=== PATIENT | male | born 1945 | race Caucasian/White ===

== ENCOUNTER 2020-09-30 16:35 | Observation (INO) ==
[2020-09-30] MEDS ORDERED: Naloxone 0.4 MG/ML INJ IVP PRN (21:06)
[2020-09-30] MEDS ORDERED: Ondansetron ODT 4 MG TAB.RAPDIS SL PRN (21:06)
[2020-09-30] MEDS: Melatonin 3 MG TABLET PO ONE ×2 (21:50→22:22)
[2020-09-30] MEDS ORDERED: Nitroglycerin 0.4 MG TAB.SUBL SL PRN (21:52)
[2020-09-30] MEDS ORDERED: *HR* Metoprolol 5 MG/5 ML VIAL IVP PRN (21:53)
[2020-09-30] MEDS ORDERED: metOLazone 5 MG TABLET PO SCH (22:00)
[2020-09-30] MEDS: Melatonin 3 MG TABLET PO SCH (22:19)
[2020-09-30] MEDS: *HR* LORazepam Oral Conc 2 MG/ML PO SCH (22:19)
[2020-10-01] MEDS: Doxycycline 100 MG in 0.9 % Sodium Chloride Mini Bag 100 ML IVPB SCH ×2 (05:49→17:25)
[2020-10-01 06:17] LABS: Basophils % 0.6 %; Eosinophils # 0.2 K/mcL (0.0-0.6); Hematocrit 28.5 % (37.5-50.1); Hemoglobin 8.8 g/dL (12.9-16.9); Immature Granulocytes % 0.2 % (0-4); Lymphocytes # 0.6 K/mcL (0.6-4.6); Lymphocytes % 11.1 %; Mean Corpuscular HGB Conc 30.9 g/dL (31.6-35.5); Mean Corpuscular Hemoglobin 27.8 pg (28.0-33.3); Mean Corpuscular Volume 89.9 fL (83.0-100.0); Mean Platelet Volume 8.7 fL (9.4-12.4); Monocytes # 0.5 K/mcL (0.0-1.3); Monocytes % 10.5 %; Neutrophils # 3.7 K/mcL (1.6-8.9); Platelet Count 126 K/mcL (140-400); Red Blood Count 3.17 M/mcL (4.19-5.50); Red Cell Distribution Width 16.4 % (11.5-14.5); Segmented Neutrophils % 73.6 %
[2020-10-01 06:24] LABS: INR 2.5; Prothrombin Time 28.2 Seconds (9.4-12.1)
[2020-10-01] MEDS ORDERED: Warfarin perPT PO PRN (07:05)
[2020-10-01] MEDS: Finasteride 5 MG TABLET PO SCH (07:42)
[2020-10-01] MEDS: Sennosides/Docusate Sodium TABLET PO SCH (07:43)
[2020-10-01 08:25] LABS: Calcium 8.9 mg/dL (8.6-10.3); Magnesium 1.7 mg/dL (1.6-2.6); Phosphorous 3.2 mg/dL (2.7-4.5); Potassium 4.2 mEq/L (3.5-5.1); Thyroid Stimulating Hormone 1.782 mcIU/mL (0.340-5.600)
[2020-10-01] MEDS ORDERED: Metoprolol XL (24 HR) Succ 25 MG TAB.ER.24H PO SCH (09:00)
[2020-10-01] MEDS ORDERED: Bumetanide 1 MG TABLET PO SCH ×2 (09:00→19:00)
[2020-10-01] MEDS ORDERED: Metoprolol XL (24 HR) Succ 25 MG TAB.ER.24H PO ONE (10:00)
[2020-10-01] MEDS: *HR* OxyCODONE/APAP 10/325 TABLET PO PRN (15:35)
[2020-10-01] MEDS: Furosemide 20 MG/2 ML VIAL IVP SCH (15:50)
[2020-10-01] MEDS ORDERED: *HR* Warfarin 3 MG TABLET PO SCH (18:00)
[2020-10-01] MEDS ORDERED: *HR* Warfarin 3 MG TABLET PO ONE (18:00)
[2020-10-01] MEDS: *HR* LORazepam Oral Conc 2 MG/ML PO SCH (21:44)
[2020-10-01] MEDS: Melatonin 3 MG TABLET PO SCH (21:48)
[2020-10-02 02:14] LABS: Basophils % 0.7 %; Eosinophils # 0.3 K/mcL (0.0-0.6); Eosinophils % 5.7 %; Hematocrit 28.7 % (37.5-50.1); Immature Granulocytes % 0.2 % (0-4); Lymphocytes # 0.4 K/mcL (0.6-4.6); Lymphocytes % 9.6 %; Mean Corpuscular HGB Conc 31.4 g/dL (31.6-35.5); Mean Corpuscular Hemoglobin 28.5 pg (28.0-33.3); Mean Corpuscular Volume 90.8 fL (83.0-100.0); Mean Platelet Volume 9.3 fL (9.4-12.4); Monocytes # 0.5 K/mcL (0.0-1.3); Monocytes % 10.9 %; Neutrophils # 3.4 K/mcL (1.6-8.9); Platelet Count 142 K/mcL (140-400); Red Blood Count 3.16 M/mcL (4.19-5.50); Red Cell Distribution Width 16.3 % (11.5-14.5); Segmented Neutrophils % 72.9 %; White Blood Count 4.6 K/mcL (4.3-11.1)
[2020-10-02 02:22] LABS: INR 2.9; Prothrombin Time 33.1 Seconds (9.4-12.1)
[2020-10-02 02:33] LABS: Calcium 8.6 mg/dL (8.6-10.3); Magnesium 1.6 mg/dL (1.6-2.6); Phosphorous 3.9 mg/dL (2.7-4.5); Potassium 4.1 mEq/L (3.5-5.1)
[2020-10-02] MEDS: Doxycycline 100 MG in 0.9 % Sodium Chloride Mini Bag 100 ML IVPB SCH (05:16)
[2020-10-02] MEDS ORDERED: metOLazone 5 MG TABLET PO SCH (06:30)
[2020-10-02] MEDS ORDERED: Metoprolol XL (24 HR) Succ 25 MG TAB.ER.24H PO SCH (09:00)
[2020-10-02] MEDS: Furosemide 20 MG/2 ML VIAL IVP SCH (10:16)
[2020-10-02] MEDS: Finasteride 5 MG TABLET PO SCH (10:17)
[2020-10-02] MEDS: Sennosides/Docusate Sodium TABLET PO SCH (10:17)
[2020-10-02 11:31] VITALS: BP 133/80
[2020-10-02] MEDS: *HR* OxyCODONE/APAP 10/325 TABLET PO PRN (13:38)
[2020-10-02] MEDS ORDERED: *HR* Warfarin 3 MG TABLET PO SCH (18:00)
== END 2020-10-02 14:51 | disposition home or self-care (01) ==
LOC: INTOOBSV 19:33 → 2ANU 19:33
PROVIDERS: ADMIT Family Medicine; ATTEND Family Medicine

== ENCOUNTER 2020-11-11 12:38 | Inpatient (IN) ==
[2020-11-11] MEDS ORDERED: 0.9 % Sodium Chloride 500 ML IVC ONE (14:42)
[2020-11-11] MEDS ORDERED: Naloxone 0.4 MG/ML INJ IVP PRN (15:25)
[2020-11-11] MEDS ORDERED: Melatonin 3 MG TABLET PO PRN (15:25)
[2020-11-11 15:49] LABS: Protein/Creatinine Ratio,Urine 3.18 mg/mg (0.00-0.20); Sodium, Urine 63.5 mEq/L
[2020-11-11] MEDS ORDERED: Ipratropium/Albuterol Neb 3 ML IH PRN (15:51)
[2020-11-11 16:00] LABS: Basophils % 0.1 %; Eosinophils % 0.4 %; Hematocrit 24.7 % (37.5-50.1); Immature Granulocytes % 0.3 % (0-4); Lymphocytes # 0.3 K/mcL (0.6-4.6); Lymphocytes % 4.4 %; Mean Corpuscular HGB Conc 32.4 g/dL (31.6-35.5); Mean Corpuscular Hemoglobin 28.2 pg (28.0-33.3); Mean Platelet Volume 8.8 fL (9.4-12.4); Monocytes # 0.5 K/mcL (0.0-1.3); Monocytes % 7.2 %; Neutrophils # 6.2 K/mcL (1.6-8.9); Platelet Count 120 K/mcL (140-400); Red Blood Count 2.84 M/mcL (4.19-5.50); Red Cell Distribution Width 16.9 % (11.5-14.5); Segmented Neutrophils % 87.6 %; White Blood Count 7.1 K/mcL (4.3-11.1)
[2020-11-11] MEDS ORDERED: polyethylene glycoL 3350 17 GM POWD.PACK PO PRN (16:11)
[2020-11-11 16:15] LABS: Uric Acid 10.1 mg/dL (2.3-7.6)
[2020-11-11 16:18] LABS: INR 8.3; Prothrombin Time 90.9 Seconds (9.4-12.1)
[2020-11-11] MEDS: 0.9 % Sodium Chloride 1,000 ML IVC SCH (16:28)
[2020-11-11 16:53] LABS: Alanine Aminotransferase 18 Units/L (7-52); Albumin 3.1 g/dL (3.5-5.7); Albumin/Globulin Ratio 0.7 (1.1-2.2); Alkaline Phosphatase 145 Units/L (34-104); Aspartate Amino Transferase 21 Units/L (13-39); Bilirubin,Total 0.6 mg/dL (0.3-1.0); Blood Urea Nitrogen > 130 mg/dL (8-23); Calcium 8.1 mg/dL (8.6-10.3); Carbon Dioxide 22 mEq/L (23-29); Chloride 91 mEq/L (98-107); Globulin 4.7 g/dL (2.4-3.5); Glucose 105 mg/dL (70-105); Magnesium 1.9 mg/dL (1.6-2.6); Potassium 3.9 mEq/L (3.5-5.1); Sodium 131 mEq/L (136-145); Total Protein 7.8 g/dL (6.4-8.9); eGFR For African Americans 6 (> 60); eGFR For Non-African Americans 5 (> 60)
[2020-11-11 16:55] LABS: Troponin I 0.11 ng/mL (< 0.04)
[2020-11-11] MEDS ORDERED: Perflutren Lipid Microsphere 1.3 ML in 0.9 % Sodium Chloride 8.7 ML IVP PRN (17:20)
[2020-11-12] MEDS: *HR* HYDROcodone/Acet 5/325 mg TABLET PO PRN ×3 (00:02→23:25)
[2020-11-12] MEDS: 0.9 % Sodium Chloride 1,000 ML IVC SCH ×3 (00:04→18:58)
[2020-11-12 04:08] LABS: Hepatitis B Surface Antigen Nonreactive (Nonreactive)
[2020-11-12 04:37] LABS: Hepatitis A Antibody IgM Nonreactive (Nonreactive); Hepatitis B Core IgM Nonreactive (Nonreactive); Hepatitis C Virus Antibody Nonreactive (Nonreactive)
[2020-11-12 05:37] LABS: Bacteria,Urine Few per hpf (None-Few); Bilirubin,Urine Negative (Negative); Blood,Urine Large (Negative); Clarity,Urine Turbid (Clear); Color,Urine Light-Orange (Yellow); Glucose,Urine (UA) Normal (Normal); Ketones,Urine Negative (Negative); Leukocyte Esterase,Urine Large (Negative); Nitrite,Urine Negative (Negative); Protein,Urine 200 mg/dL (Neg-Trace); RBC,Urine TNTC per hpf (0-3); Specific Gravity,Urine 1.014 (1.010-1.025); Squamous Epithelial Cell,Urine Few per hpf (None-Few); Urobilinogen,Urine Normal (Normal); WBC,Urine TNTC per hpf (0-3)
[2020-11-12 05:43] LABS: Basophils % 0.1 %; Eosinophils % 0.4 %; Hematocrit 24.1 % (37.5-50.1); Hemoglobin 7.7 g/dL (12.9-16.9); Immature Granulocytes % 0.4 % (0-4); Lymphocytes # 0.4 K/mcL (0.6-4.6); Mean Corpuscular Volume 87.6 fL (83.0-100.0); Mean Platelet Volume 8.9 fL (9.4-12.4); Monocytes # 0.4 K/mcL (0.0-1.3); Monocytes % 6.3 %; Neutrophils # 5.9 K/mcL (1.6-8.9); Platelet Count 113 K/mcL (140-400); Red Blood Count 2.75 M/mcL (4.19-5.50); Red Cell Distribution Width 17.1 % (11.5-14.5); Segmented Neutrophils % 86.8 %; White Blood Count 6.8 K/mcL (4.3-11.1)
[2020-11-12 05:53] LABS: INR 2.1; Prothrombin Time 24.2 Seconds (9.4-12.1)
[2020-11-12 07:44] LABS: % Iron Saturation 30 % (20-55); Iron 56 mcg/dL (65-175); Transferrin 134 mg/dL (203-362)
[2020-11-12 08:19] LABS: Blood Urea Nitrogen > 130 mg/dL (8-23); Calcium 8.2 mg/dL (8.6-10.3); Carbon Dioxide 19 mEq/L (23-29); Chloride 96 mEq/L (98-107); Glucose 101 mg/dL (70-105); Potassium 4.2 mEq/L (3.5-5.1); Sodium 132 mEq/L (136-145); eGFR For African Americans 6 (> 60); eGFR For Non-African Americans 5 (> 60)
[2020-11-12 09:47] LABS: Folate 21.9 ng/mL (3.0-16.0); Vitamin B12 > 1500 pg/mL (250-1100)
[2020-11-12] MEDS ORDERED: Nitroglycerin 0.4 MG TAB.SUBL SL PRN (12:19)
[2020-11-12 13:38] LABS: C-Reactive Protein 284 mg/L (Less than 10)
[2020-11-12] MEDS ORDERED: Warfarin perPT PO PRN ×2 (15:53→18:00)
[2020-11-12] MEDS ORDERED: *HR* Warfarin 2 MG TABLET PO ONE (18:00)
[2020-11-13 03:20] LABS: Basophils % 0.3 %; Eosinophils % 0.7 %; Hematocrit 24.1 % (37.5-50.1); Hemoglobin 7.6 g/dL (12.9-16.9); Immature Granulocytes % 0.7 % (0-4); Lymphocytes # 0.3 K/mcL (0.6-4.6); Lymphocytes % 5.6 %; Mean Corpuscular HGB Conc 31.5 g/dL (31.6-35.5); Mean Corpuscular Hemoglobin 28.1 pg (28.0-33.3); Mean Corpuscular Volume 89.3 fL (83.0-100.0); Mean Platelet Volume 9.6 fL (9.4-12.4); Monocytes # 0.5 K/mcL (0.0-1.3); Monocytes % 8.1 %; Platelet Count 149 K/mcL (140-400); Red Cell Distribution Width 16.9 % (11.5-14.5); Segmented Neutrophils % 84.6 %; White Blood Count 5.9 K/mcL (4.3-11.1)
[2020-11-13 03:36] LABS: INR 2.9; Prothrombin Time 32.4 Seconds (9.4-12.1)
[2020-11-13 03:40] LABS: Blood Urea Nitrogen > 130 mg/dL (8-23); Carbon Dioxide 17 mEq/L (23-29); Chloride 96 mEq/L (98-107); Glucose 93 mg/dL (70-105); Sodium 131 mEq/L (136-145); eGFR For African Americans 7 (> 60); eGFR For Non-African Americans 6 (> 60)
[2020-11-13 04:21] LABS: Complement C3 112 mg/dL (87-200)
[2020-11-13] MEDS: *HR* HYDROcodone/Acet 5/325 mg TABLET PO PRN ×2 (09:04→23:56)
[2020-11-13] MEDS: 0.9 % Sodium Chloride 1,000 ML IVC SCH ×3 (09:11→23:51)
[2020-11-13] MEDS: cefTRIAXone 1,000 MG in Water for inj. (sterile) 10 ML IVP SCH (13:44)
[2020-11-13] MEDS: Doxycycline 100 MG in 0.9 % Sodium Chloride Mini Bag 100 ML IVPB SCH ×2 (13:44→23:56)
[2020-11-13 16:44] LABS: Adenovirus Not Detected (Not Detect); Bordetella Pertussis Not Detected (Not Detect); Chlamydophila pneumoniae Not Detected (Not Detect); Coronavirus 229E Not Detected (Not Detect); Coronavirus HKU1 Not Detected (Not Detect); Coronavirus NL63 Not Detected (Not Detect); Coronavirus OC43 Not Detected (Not Detect); Human Metapneumovirus Not Detected (Not Detect); Human Rhinovirus/Enterovirus Not Detected (Not Detect); Influenza A Subtype 2009 H1 Not Detected (Not Detect); Influenza B Not Detected (Not Detect); Mycoplasma pneumoniae Not Detected (Not Detect); Parainfluenza Virus 1 Not Detected (Not Detect); Parainfluenza Virus 2 Not Detected (Not Detect); Parainfluenza Virus 3 Not Detected (Not Detect); Parainfluenza Virus 4 Not Detected (Not Detect); Respiratory Syncytial Virus Not Detected (Not Detect)
[2020-11-13] MEDS: Aspirin 81 MG TAB.CHEW PO SCH (23:49)
[2020-11-14 07:23] LABS: Hematocrit 24.9 % (37.5-50.1); Hemoglobin 7.8 g/dL (12.9-16.9); White Blood Count 5.2 K/mcL (4.3-11.1)
[2020-11-14 07:24] LABS: Basophils % 0.2 %; Eosinophils # 0.1 K/mcL (0.0-0.6); Immature Granulocytes % 0.8 % (0-4); Lymphocytes # 0.3 K/mcL (0.6-4.6); Lymphocytes % 6.5 %; Mean Corpuscular HGB Conc 31.3 g/dL (31.6-35.5); Mean Corpuscular Hemoglobin 27.9 pg (28.0-33.3); Mean Corpuscular Volume 88.9 fL (83.0-100.0); Mean Platelet Volume 8.8 fL (9.4-12.4); Monocytes # 0.4 K/mcL (0.0-1.3); Monocytes % 7.4 %; Neutrophils # 4.4 K/mcL (1.6-8.9); Platelet Count 143 K/mcL (140-400); Red Cell Distribution Width 16.8 % (11.5-14.5); Segmented Neutrophils % 84.1 %
[2020-11-14 07:36] LABS: INR 4.8; Prothrombin Time 53.2 Seconds (9.4-12.1)
[2020-11-14 07:39] LABS: % Iron Saturation 24 % (20-55); Iron 42 mcg/dL (65-175); Transferrin 126 mg/dL (203-362)
[2020-11-14 07:50] LABS: Blood Urea Nitrogen > 130 mg/dL (8-23); Calcium 8.3 mg/dL (8.6-10.3); Carbon Dioxide 17 mEq/L (23-29); Chloride 99 mEq/L (98-107); Glucose 82 mg/dL (70-105); Potassium 3.8 mEq/L (3.5-5.1); Sodium 134 mEq/L (136-145); eGFR For African Americans 6 (> 60); eGFR For Non-African Americans 5 (> 60)
[2020-11-14] MEDS: cefTRIAXone 1,000 MG in Water for inj. (sterile) 10 ML IVP SCH (08:16)
[2020-11-14] MEDS: Aspirin 81 MG TAB.CHEW PO SCH (08:17)
[2020-11-14] MEDS ORDERED: Ferumoxytol 510 MG in 0.9 % Sodium Chloride 100 ML IVPB ONE (09:23)
[2020-11-14] MEDS: 0.9 % Sodium Chloride 1,000 ML IVC SCH (13:24)
[2020-11-14] MEDS: Doxycycline 100 MG in 0.9 % Sodium Chloride Mini Bag 100 ML IVPB SCH (13:24)
[2020-11-14] MEDS: *HR* HYDROcodone/Acet 5/325 mg TABLET PO PRN (14:05)
[2020-11-14] MEDS: Melatonin 3 MG TABLET PO SCH (23:37)
[2020-11-14] MEDS: *HR* LORazepam 1 MG TABLET PO SCH (23:37)
[2020-11-15] MEDS: Doxycycline 100 MG in 0.9 % Sodium Chloride Mini Bag 100 ML IVPB SCH ×2 (01:09→12:05)
[2020-11-15] MEDS: 0.9 % Sodium Chloride 1,000 ML IVC SCH (01:09)
[2020-11-15 05:21] LABS: Basophils % 0.2 %; Eosinophils # 0.1 K/mcL (0.0-0.6); Eosinophils % 1.9 %; Hematocrit 24.8 % (37.5-50.1); Hemoglobin 7.8 g/dL (12.9-16.9); Immature Granulocytes % 0.4 % (0-4); Lymphocytes # 0.3 K/mcL (0.6-4.6); Mean Corpuscular HGB Conc 31.5 g/dL (31.6-35.5); Mean Corpuscular Hemoglobin 28.2 pg (28.0-33.3); Mean Corpuscular Volume 89.5 fL (83.0-100.0); Mean Platelet Volume 8.9 fL (9.4-12.4); Monocytes # 0.5 K/mcL (0.0-1.3); Monocytes % 8.8 %; Neutrophils # 4.2 K/mcL (1.6-8.9); Platelet Count 154 K/mcL (140-400); Red Blood Count 2.77 M/mcL (4.19-5.50); Red Cell Distribution Width 16.8 % (11.5-14.5); Segmented Neutrophils % 82.7 %; White Blood Count 5.1 K/mcL (4.3-11.1)
[2020-11-15 05:34] LABS: INR 6.8; Prothrombin Time 74.1 Seconds (9.4-12.1)
[2020-11-15 05:36] LABS: Blood Urea Nitrogen > 130 mg/dL (8-23); Carbon Dioxide 17 mEq/L (23-29); Chloride 103 mEq/L (98-107); Glucose 115 mg/dL (70-105); Potassium 3.8 mEq/L (3.5-5.1); Sodium 135 mEq/L (136-145); eGFR For African Americans 7 (> 60); eGFR For Non-African Americans 6 (> 60)
[2020-11-15 07:07] LABS: ANA IgG by ELISA NONE DETECTED (None Detected)
[2020-11-15] MEDS: Cyanocobalamin (B-12) 1,000 MCG TABLET PO SCH (08:54)
[2020-11-15] MEDS: Aspirin 81 MG TAB.CHEW PO SCH (08:54)
[2020-11-15] MEDS: cefTRIAXone 1,000 MG in Water for inj. (sterile) 10 ML IVP SCH (08:56)
[2020-11-15] MEDS: Melatonin 3 MG TABLET PO SCH (23:28)
[2020-11-15] MEDS: *HR* LORazepam 1 MG TABLET PO SCH (23:28)
[2020-11-16] MEDS: Doxycycline 100 MG in 0.9 % Sodium Chloride Mini Bag 100 ML IVPB SCH (01:06)
[2020-11-16] MEDS: *HR* HYDROcodone/Acet 5/325 mg TABLET PO PRN ×2 (04:39→11:03)
[2020-11-16 05:39] LABS: Hematocrit 23.5 % (37.5-50.1); Hemoglobin 7.3 g/dL (12.9-16.9); Mean Corpuscular HGB Conc 31.1 g/dL (31.6-35.5); Mean Corpuscular Hemoglobin 27.9 pg (28.0-33.3); Mean Corpuscular Volume 89.7 fL (83.0-100.0); Mean Platelet Volume 9.1 fL (9.4-12.4); Platelet Count 158 K/mcL (140-400); Red Blood Count 2.62 M/mcL (4.19-5.50); White Blood Count 5.9 K/mcL (4.3-11.1)
[2020-11-16 05:51] LABS: INR 1.9; Prothrombin Time 21.4 Seconds (9.4-12.1)
[2020-11-16 05:58] LABS: Blood Urea Nitrogen > 130 mg/dL (8-23); Calcium 8.4 mg/dL (8.6-10.3); Carbon Dioxide 18 mEq/L (23-29); Chloride 103 mEq/L (98-107); Glucose 97 mg/dL (70-105); Sodium 136 mEq/L (136-145); eGFR For African Americans 7 (> 60); eGFR For Non-African Americans 5 (> 60)
[2020-11-16] MEDS ORDERED: 0.9 % Sodium Chloride 250 ML IVC PRN (07:30)
[2020-11-16] MEDS ORDERED: 0.9 % Sodium Chloride 1,000 ML PRIME SCH (07:30)
[2020-11-16 08:02] LABS: Serine Protease-3 Antibody 18 AU/mL (0-19)
[2020-11-16] MEDS ORDERED: Heparin 1,000 UNITS/500 mL 500 ML ONE (08:09)
[2020-11-16] MEDS ORDERED: Lidocaine/EPI 1:100k 1% 50 ML VIAL ONE (08:09)
[2020-11-16] MEDS ORDERED: *HR* Heparin 5,000 UNIT/ML VIAL ONE (08:46)
[2020-11-16] MEDS: Aspirin 81 MG TAB.CHEW PO SCH (09:21)
[2020-11-16] MEDS: Cyanocobalamin (B-12) 1,000 MCG TABLET PO SCH (09:22)
[2020-11-16] MEDS: cefTRIAXone 1,000 MG in Water for inj. (sterile) 10 ML IVP SCH (09:24)
[2020-11-16 10:06] LABS: Hepatitis B Surface Antibody 7.85 mIU/mL
[2020-11-16 10:16] LABS: Hepatitis B Surface Antigen Nonreactive (Nonreactive)
[2020-11-16] MEDS: Doxycycline 100 MG CAPSULE PO SCH ×2 (11:05→20:33)
[2020-11-16] MEDS: *HR* LORazepam 1 MG TABLET PO SCH (23:56)
[2020-11-16] MEDS: Melatonin 3 MG TABLET PO SCH (23:57)
[2020-11-17 03:18] LABS: Hematocrit 22.3 % (37.5-50.1); Hemoglobin 6.9 g/dL (12.9-16.9); Mean Corpuscular HGB Conc 30.9 g/dL (31.6-35.5); Mean Corpuscular Hemoglobin 27.6 pg (28.0-33.3); Mean Corpuscular Volume 89.2 fL (83.0-100.0); Mean Platelet Volume 8.8 fL (9.4-12.4); Platelet Count 142 K/mcL (140-400); Red Cell Distribution Width 16.6 % (11.5-14.5)
[2020-11-17 03:26] LABS: INR 2.3; Prothrombin Time 25.6 Seconds (9.4-12.1)
[2020-11-17 03:38] LABS: Potassium 3.6 mEq/L (3.5-5.1)
[2020-11-17] MEDS ORDERED: 0.9 % Sodium Chloride 250 ML IVC SCH (07:15)
[2020-11-17] MEDS ORDERED: 0.9 % Sodium Chloride 250 ML IVC PRN (07:24)
[2020-11-17] MEDS: Aspirin 81 MG TAB.CHEW PO SCH (07:35)
[2020-11-17] MEDS: cefTRIAXone 1,000 MG in Water for inj. (sterile) 10 ML IVP SCH (07:36)
[2020-11-17] MEDS: Cyanocobalamin (B-12) 1,000 MCG TABLET PO SCH (07:36)
[2020-11-17] MEDS: Doxycycline 100 MG CAPSULE PO SCH ×2 (07:36→20:51)
[2020-11-17] MEDS ORDERED: *HR* Heparin 10,000 UNIT/10 ML VIAL ONE (11:03)
[2020-11-17] MEDS: *HR* HYDROcodone/Acet 5/325 mg TABLET PO PRN (14:16)
[2020-11-17] MEDS: *HR* LORazepam 1 MG TABLET PO SCH (23:50)
[2020-11-17] MEDS: Melatonin 3 MG TABLET PO SCH (23:50)
[2020-11-18] MEDS: *HR* HYDROcodone/Acet 5/325 mg TABLET PO PRN ×2 (02:46→20:34)
[2020-11-18 03:21] LABS: Hematocrit 24.7 % (37.5-50.1); Hemoglobin 7.9 g/dL (12.9-16.9); Mean Corpuscular Hemoglobin 28.9 pg (28.0-33.3); Mean Corpuscular Volume 90.5 fL (83.0-100.0); Mean Platelet Volume 8.8 fL (9.4-12.4); Platelet Count 137 K/mcL (140-400); Red Blood Count 2.73 M/mcL (4.19-5.50); Red Cell Distribution Width 16.8 % (11.5-14.5); White Blood Count 6.6 K/mcL (4.3-11.1)
[2020-11-18 03:29] LABS: INR 2.6; Prothrombin Time 29.7 Seconds (9.4-12.1)
[2020-11-18 03:44] LABS: Calcium 8.1 mg/dL (8.6-10.3); Potassium 3.6 mEq/L (3.5-5.1)
[2020-11-18] MEDS ORDERED: 0.9 % Sodium Chloride 250 ML IVC PRN (07:08)
[2020-11-18] MEDS: Aspirin 81 MG TAB.CHEW PO SCH ×2 (08:09→08:20)
[2020-11-18] MEDS: Cyanocobalamin (B-12) 1,000 MCG TABLET PO SCH (08:10)
[2020-11-18] MEDS: Doxycycline 100 MG CAPSULE PO SCH ×2 (08:10→20:31)
[2020-11-18] MEDS: cefTRIAXone 1,000 MG in Water for inj. (sterile) 10 ML IVP SCH (08:10)
[2020-11-18] MEDS ORDERED: *HR* Heparin 10,000 UNIT/10 ML VIAL IV PRN (11:18)
[2020-11-18] MEDS: *HR* LORazepam 1 MG TABLET PO SCH (20:28)
[2020-11-18] MEDS: Melatonin 3 MG TABLET PO SCH (20:29)
[2020-11-19 03:07] LABS: Hematocrit 23.7 % (37.5-50.1); Hemoglobin 7.4 g/dL (12.9-16.9); Mean Corpuscular HGB Conc 31.2 g/dL (31.6-35.5); Mean Corpuscular Hemoglobin 28.4 pg (28.0-33.3); Mean Corpuscular Volume 90.8 fL (83.0-100.0); Mean Platelet Volume 8.8 fL (9.4-12.4); Platelet Count 149 K/mcL (140-400); Red Blood Count 2.61 M/mcL (4.19-5.50); Red Cell Distribution Width 16.9 % (11.5-14.5); White Blood Count 5.9 K/mcL (4.3-11.1)
[2020-11-19 03:17] LABS: Prothrombin Time 23.2 Seconds (9.4-12.1)
[2020-11-19 03:28] LABS: Magnesium 1.5 mg/dL (1.6-2.6); Potassium 3.3 mEq/L (3.5-5.1)
[2020-11-19] MEDS: Aspirin 81 MG TAB.CHEW PO SCH (09:12)
[2020-11-19] MEDS: Doxycycline 100 MG CAPSULE PO SCH (09:13)
[2020-11-19] MEDS: Sennosides/Docusate Sodium TABLET PO SCH (09:15)
[2020-11-19] MEDS: cefTRIAXone 1,000 MG in Water for inj. (sterile) 10 ML IVP SCH (09:55)
[2020-11-19] MEDS: Cyanocobalamin (B-12) 1,000 MCG TABLET PO SCH (09:57)
[2020-11-19] MEDS: *HR* HYDROcodone/Acet 5/325 mg TABLET PO PRN (11:03)
[2020-11-20] MEDS: *HR* LORazepam 1 MG TABLET PO SCH ×2 (00:12→20:04)
[2020-11-20] MEDS: Melatonin 3 MG TABLET PO SCH ×2 (00:13→20:04)
[2020-11-20 03:38] LABS: Hematocrit 26.8 % (37.5-50.1); Hemoglobin 7.9 g/dL (12.9-16.9); Mean Corpuscular HGB Conc 29.5 g/dL (31.6-35.5); Mean Corpuscular Hemoglobin 26.9 pg (28.0-33.3); Mean Corpuscular Volume 91.2 fL (83.0-100.0); Mean Platelet Volume 9.7 fL (9.4-12.4); Platelet Count 391 K/mcL (140-400); Red Blood Count 2.94 M/mcL (4.19-5.50); Red Cell Distribution Width 19.9 % (11.5-14.5)
[2020-11-20 03:40] LABS: White Blood Count 12.5 K/mcL (4.3-11.1)
[2020-11-20 03:46] LABS: Prothrombin Time 12.1 Seconds (9.4-12.1)
[2020-11-20 03:59] LABS: BUN/Creatinine Ratio 21 (6-26); Blood Urea Nitrogen 12 mg/dL (8-23); Carbon Dioxide 21 mEq/L (23-29); Chloride 108 mEq/L (98-107); Glucose 187 mg/dL (70-105); Magnesium 1.9 mg/dL (1.6-2.6); Osmolality,Calculated 289 (280-300); Phosphorous 2.6 mg/dL (2.7-4.5); Potassium 4.1 mEq/L (3.5-5.1); Sodium 137 mEq/L (136-145); eGFR For African Americans > 60 (> 60); eGFR For Non-African Americans > 60 (> 60)
[2020-11-20 08:34] LABS: Calcium 8.1 mg/dL (8.6-10.3); Potassium 3.5 mEq/L (3.5-5.1)
[2020-11-20 08:48] LABS: Troponin I 0.08 ng/mL (< 0.04)
[2020-11-20] MEDS: Cyanocobalamin (B-12) 1,000 MCG TABLET PO SCH (09:02)
[2020-11-20] MEDS: Aspirin 81 MG TAB.CHEW PO SCH (09:02)
[2020-11-20] MEDS: Sennosides/Docusate Sodium TABLET PO SCH (09:03)
[2020-11-20] MEDS: *HR* HYDROcodone/Acet 5/325 mg TABLET PO PRN ×2 (11:38→16:02)
[2020-11-20] MEDS ORDERED: Saline Nasal Spray 44 ML BOTTLE NS PRN (11:42)
[2020-11-20] MEDS ORDERED: Heparin 1,000 UNITS/500 mL 500 ML ONE (12:52)
[2020-11-20 13:26] LABS: Basophils % 0.4 %; Eosinophils # 0.2 K/mcL (0.0-0.6); Eosinophils % 2.9 %; Hematocrit 23.1 % (37.5-50.1); Hemoglobin 7.1 g/dL (12.9-16.9); Immature Granulocytes % 0.4 % (0-4); Lymphocytes # 0.4 K/mcL (0.6-4.6); Lymphocytes % 7.5 %; Mean Corpuscular HGB Conc 30.7 g/dL (31.6-35.5); Mean Corpuscular Volume 94.3 fL (83.0-100.0); Monocytes # 0.7 K/mcL (0.0-1.3); Platelet Count 124 K/mcL (140-400); Red Blood Count 2.45 M/mcL (4.19-5.50); Segmented Neutrophils % 75.8 %
[2020-11-20 13:27] LABS: Neutrophils # 3.9 K/mcL (1.6-8.9); White Blood Count 5.2 K/mcL (4.3-11.1)
[2020-11-20] MEDS ORDERED: *HR* Midazolam HCl 2 MG/2 ML VIAL IVP ONE (13:29)
[2020-11-20] MEDS ORDERED: *HR* FentaNYL (PF) 100 MCG/2 ML VIAL IVP ONE (13:29)
[2020-11-20] MEDS ORDERED: CeFAZolin 2,000 MG/50 ML BAG IVPB ONE (14:00)
[2020-11-20] MEDS ORDERED: 0.9 % Sodium Chloride 500 ML ONE (14:04)
[2020-11-20] MEDS ORDERED: *HR* Heparin 5,000 UNIT/ML VIAL ONE (14:22)
[2020-11-20] MEDS ORDERED: *HR* Heparin 5,000 UNIT/ML VIAL IVP PRN ×2 (14:48)
[2020-11-20] MEDS ORDERED: *HR* Heparin 5,000 UNIT/ML VIAL IVP ONE (15:00)
[2020-11-20] MEDS: Heparin 25,000UNIT/250ML 1/2NS 25,000 UNIT/250 ML IV.SOLN IVC SCH (16:03)
[2020-11-20] MEDS ORDERED: *HR* LORazepam 1 MG TABLET PO ONE (16:24)
[2020-11-20] MEDS ORDERED: *HR* Warfarin 3 MG TABLET PO ONE (18:00)
[2020-11-21] MEDS ORDERED: *HR* OxyCODONE/APAP 10/325 TABLET PO ONE (04:50)
[2020-11-21 04:51] LABS: Hematocrit 24.5 % (37.5-50.1); Hemoglobin 7.5 g/dL (12.9-16.9); Mean Corpuscular HGB Conc 30.6 g/dL (31.6-35.5); Mean Corpuscular Hemoglobin 28.6 pg (28.0-33.3); Mean Corpuscular Volume 93.5 fL (83.0-100.0); Mean Platelet Volume 9.2 fL (9.4-12.4); Platelet Count 150 K/mcL (140-400); Red Blood Count 2.62 M/mcL (4.19-5.50); Red Cell Distribution Width 17.2 % (11.5-14.5); White Blood Count 6.1 K/mcL (4.3-11.1)
[2020-11-21 05:04] LABS: Heparin anti-factor XA UFH 0.37 IU/mL (0.30-0.70)
[2020-11-21 05:07] LABS: INR 1.9; Prothrombin Time 21.6 Seconds (9.4-12.1)
[2020-11-21 05:10] LABS: Calcium 8.2 mg/dL (8.6-10.3); Magnesium 1.5 mg/dL (1.6-2.6); Phosphorous 4.4 mg/dL (2.7-4.5); Potassium 3.8 mEq/L (3.5-5.1)
[2020-11-21] MEDS: Cyanocobalamin (B-12) 1,000 MCG TABLET PO SCH (08:08)
[2020-11-21] MEDS: Renal Vitamin 1 CAP CAPSULE PO SCH (08:08)
[2020-11-21] MEDS: Sennosides/Docusate Sodium TABLET PO SCH (08:08)
[2020-11-21] MEDS: Aspirin 81 MG TAB.CHEW PO SCH (08:10)
[2020-11-21] MEDS ORDERED: 0.9 % Sodium Chloride 250 ML IVC PRN (08:11)
[2020-11-21] MEDS ORDERED: *HR* Heparin 10,000 UNIT/10 ML VIAL IV PRN (08:11)
[2020-11-21] MEDS: Heparin 25,000UNIT/250ML 1/2NS 25,000 UNIT/250 ML IV.SOLN IVC SCH (09:27)
[2020-11-21] MEDS: *HR* HYDROcodone/Acet 5/325 mg TABLET PO PRN (13:25)
[2020-11-21] MEDS ORDERED: *HR* HYDROcodone/Acet 5/325 mg TABLET PO PRN (13:30)
[2020-11-21] MEDS ORDERED: *HR* Warfarin 1 MG TABLET PO ONE (18:00)
[2020-11-21] MEDS: *HR* OxyCODONE/APAP 10/325 TABLET PO PRN (18:03)
[2020-11-21] MEDS: *HR* LORazepam 1 MG TABLET PO SCH (21:34)
[2020-11-21] MEDS: Melatonin 3 MG TABLET PO SCH (21:35)
[2020-11-22] MEDS ORDERED: 0.9 % Sodium Chloride 250 ML IVC ONE (00:27)
[2020-11-22] MEDS: Heparin 25,000UNIT/250ML 1/2NS 25,000 UNIT/250 ML IV.SOLN IVC SCH ×2 (03:51→23:15)
[2020-11-22 05:27] LABS: Hematocrit 23.6 % (37.5-50.1); Mean Corpuscular HGB Conc 29.7 g/dL (31.6-35.5); Mean Corpuscular Hemoglobin 28.3 pg (28.0-33.3); Mean Corpuscular Volume 95.5 fL (83.0-100.0); Mean Platelet Volume 9.1 fL (9.4-12.4); Platelet Count 151 K/mcL (140-400); Red Blood Count 2.47 M/mcL (4.19-5.50); Red Cell Distribution Width 17.2 % (11.5-14.5); White Blood Count 6.1 K/mcL (4.3-11.1)
[2020-11-22 05:35] LABS: INR 1.8
[2020-11-22 05:46] LABS: Calcium 8.2 mg/dL (8.6-10.3); Magnesium 1.9 mg/dL (1.6-2.6); Phosphorous 2.8 mg/dL (2.7-4.5); Potassium 4.2 mEq/L (3.5-5.1)
[2020-11-22] MEDS: Renal Vitamin 1 CAP CAPSULE PO SCH (07:10)
[2020-11-22] MEDS: Sennosides/Docusate Sodium TABLET PO SCH (07:10)
[2020-11-22] MEDS: Cyanocobalamin (B-12) 1,000 MCG TABLET PO SCH (07:10)
[2020-11-22] MEDS: Aspirin 81 MG TAB.CHEW PO SCH (07:11)
[2020-11-22] MEDS ORDERED: *HR* Warfarin 3 MG TABLET PO ONE (18:00)
[2020-11-22] MEDS: *HR* OxyCODONE/APAP 10/325 TABLET PO PRN (18:45)
[2020-11-22] MEDS: Melatonin 3 MG TABLET PO SCH (19:43)
[2020-11-22] MEDS: *HR* LORazepam 1 MG TABLET PO SCH (19:43)
[2020-11-23] MEDS ORDERED: hydrOXYzine pamoate 25 MG CAPSULE PO ONE (00:26)
[2020-11-23 05:10] LABS: Hematocrit 23.5 % (37.5-50.1); Mean Corpuscular HGB Conc 29.8 g/dL (31.6-35.5); Mean Corpuscular Hemoglobin 28.6 pg (28.0-33.3); Mean Corpuscular Volume 95.9 fL (83.0-100.0); Platelet Count 151 K/mcL (140-400); Red Blood Count 2.45 M/mcL (4.19-5.50); Red Cell Distribution Width 17.3 % (11.5-14.5); White Blood Count 5.5 K/mcL (4.3-11.1)
[2020-11-23 05:19] LABS: INR 1.8; Prothrombin Time 20.4 Seconds (9.4-12.1)
[2020-11-23 05:27] LABS: Calcium 8.2 mg/dL (8.6-10.3); Magnesium 1.8 mg/dL (1.6-2.6); Phosphorous 3.3 mg/dL (2.7-4.5); Potassium 4.4 mEq/L (3.5-5.1)
[2020-11-23] MEDS: Aspirin 81 MG TAB.CHEW PO SCH (09:24)
[2020-11-23] MEDS: Renal Vitamin 1 CAP CAPSULE PO SCH (09:24)
[2020-11-23] MEDS: Sennosides/Docusate Sodium TABLET PO SCH (09:24)
[2020-11-23] MEDS: Cyanocobalamin (B-12) 1,000 MCG TABLET PO SCH (09:24)
[2020-11-23] MEDS: *HR* OxyCODONE/APAP 10/325 TABLET PO PRN ×2 (09:25→21:59)
[2020-11-23] MEDS ORDERED: *HR* Warfarin 3 MG TABLET PO ONE (18:00)
[2020-11-23] MEDS: Heparin 25,000UNIT/250ML 1/2NS 25,000 UNIT/250 ML IV.SOLN IVC SCH (19:32)
[2020-11-23] MEDS: *HR* LORazepam 1 MG TABLET PO SCH (21:59)
[2020-11-23] MEDS: Melatonin 3 MG TABLET PO SCH (21:59)
[2020-11-24 01:16] LABS: Hematocrit 22.6 % (37.5-50.1); Hemoglobin 6.9 g/dL (12.9-16.9); Mean Corpuscular HGB Conc 30.5 g/dL (31.6-35.5); Mean Corpuscular Hemoglobin 28.8 pg (28.0-33.3); Mean Corpuscular Volume 94.2 fL (83.0-100.0); Mean Platelet Volume 9.2 fL (9.4-12.4); Platelet Count 170 K/mcL (140-400); Red Cell Distribution Width 17.4 % (11.5-14.5); White Blood Count 6.3 K/mcL (4.3-11.1)
[2020-11-24 01:28] LABS: Prothrombin Time 22.3 Seconds (9.4-12.1)
[2020-11-24 01:36] LABS: Calcium 8.4 mg/dL (8.6-10.3); Magnesium 1.7 mg/dL (1.6-2.6); Phosphorous 3.7 mg/dL (2.7-4.5); Potassium 4.8 mEq/L (3.5-5.1)
[2020-11-24] MEDS ORDERED: 0.9 % Sodium Chloride 250 ML IVC PRN (07:16)
[2020-11-24] MEDS ORDERED: *HR* Heparin 10,000 UNIT/10 ML VIAL IV PRN (07:16)
[2020-11-24] MEDS: Renal Vitamin 1 CAP CAPSULE PO SCH (11:04)
[2020-11-24] MEDS: Sennosides/Docusate Sodium TABLET PO SCH (11:04)
[2020-11-24] MEDS: Cyanocobalamin (B-12) 1,000 MCG TABLET PO SCH (11:05)
[2020-11-24] MEDS: Aspirin 81 MG TAB.CHEW PO SCH (11:05)
[2020-11-24 12:05] VITALS: BP 108/65
[2020-11-24] MEDS: *HR* OxyCODONE/APAP 10/325 TABLET PO PRN (12:39)
[2020-11-24 12:45] LABS: Hematocrit 26.6 % (37.5-50.1); Hemoglobin 8.3 g/dL (12.9-16.9)
[2020-11-24] MEDS ORDERED: *HR* Warfarin 3 MG TABLET PO ONE (18:00)
== END 2020-11-24 15:19 | disposition home or self-care (01) | DRG 673 ==
LOC: 2ANU → SUATTDRO 14:13
PROVIDERS: ADMIT Family Medicine; ATTEND Internal Medicine
PROC: IRPERMA (2020-11-20 11:00)